=== PATIENT | female | born 1950 | race Caucasian/White ===

== ENCOUNTER → 2023-09-11 16:04 | Outpatient (CLI) | payer MEDICARE, SELFPAY ==
[2023-09-11 17:37] LABS: Add Manual Diff / Slide Review NO; Basophils Absolute Auto 0 /uL (0-100); Basophils Percent Auto 0.9 % (0-2); Eosinophils Absolute Auto 100 /uL (0-450); Eosinophils Percent Auto 1.7 % (2-4); Hematocrit 36.1 % (36-46); Hemoglobin 12.2 g/dL (12.0-16.0); Lymphocytes Absolute Auto 1200 /uL (1100-4500); Lymphocytes Percent Auto 25.1 % (25-40); Mean Corpuscular HGB Conc 33.9 % (30-36); Mean Corpuscular Hemoglobin 30.1 PG (26-34); Mean Corpuscular Volume 88.6 fL (80-100); Monocytes Absolute Auto 400 /uL (0-900); Monocytes Percent Auto 8.3 % (3-14); Neutrophils Absolute Auto 3200 /uL (1500-7000); Platelet Count 152 X10^3/uL (150-400); Red Blood Cell Count 4.07 X10^6/uL (4.0-5.2); Red Cell Distribution Width 12.7 % (11.6-14.8)
[2023-09-11 17:55] LABS: Alanine Aminotransferase 17 IU/L (<35); Albumin 4.3 g/dL (3.5-5.0); Albumin Globulin Ratio 1.3 (1.0-2.8); Alkaline Phosphatase 64 U/L (38-126); Aspartate Aminotransferase 33 IU/L (14-36); Bilirubin Total 0.5 mg/dL (0.2-1.3); Blood Urea Nitrogen 15 mg/dL (7-17); Calcium 9.7 mg/dL (8.4-10.2); Carbon Dioxide 30 mmol/L (22-32); Chloride 103 mmol/L (98-107); Estimated Glomerular Filt Rate > 60 mL/min (>60); Globulin 3.2 g/dL (1.7-4.1); Glucose 101 mg/dL (80-110); HEMOLYSIS < 15 (0-50); Potassium 4.2 mmol/L (3.4-5.1); Sodium 137 mmol/L (137-145); Total Protein 7.5 g/dL (6.3-8.2)
[2023-09-11 18:24] LABS: TSH w/ Reflex to FT4 1.49 uIU/mL (0.47-4.68)
== END ==
LOC: LAB 16:07
PROVIDERS: PCP Family Medicine; Referring Provider Family Medicine; Visit Provider Family Medicine
DX: R53.1 Weakness (principal); R53.83 Other fatigue; G31.83 Neurocognitive disorder with Lewy bodies; F02.80 Dementia in other diseases classified elsewhere, unspecified severity, without behavioral disturbance, psychotic disturbance, mood disturbance, and anxiety; Z86.19 Personal history of other infectious and parasitic diseases; R10.13 Epigastric pain
CPT/HCPCS: 36415; 80053; 84443; 85025

== ENCOUNTER → 2023-09-17 13:49 | Outpatient (CLI) | payer MEDICARE, SELFPAY ==
[2023-09-23 15:13] LABS: H. Pylori Antigen Stool Negative (Negative)
== END ==
PROVIDERS: PCP Family Medicine; Referring Provider Family Medicine; Visit Provider Family Medicine
DX: R10.13 Epigastric pain (principal); R53.1 Weakness; R53.83 Other fatigue; G31.83 Neurocognitive disorder with Lewy bodies; F02.80 Dementia in other diseases classified elsewhere, unspecified severity, without behavioral disturbance, psychotic disturbance, mood disturbance, and anxiety; Z86.19 Personal history of other infectious and parasitic diseases
CPT/HCPCS: 87338

== ENCOUNTER → 2024-01-08 09:23 | Outpatient (CLI) | payer MEDICARE, SELFPAY ==
[2024-01-08 09:44] LABS: Add Manual Diff / Slide Review NO; Basophils Absolute Auto 0 /uL (0-100); Basophils Percent Auto 0.5 % (0-2); Eosinophils Absolute Auto 100 /uL (0-450); Eosinophils Percent Auto 1.4 % (2-4); Hematocrit 36.3 % (36-46); Hemoglobin 12.2 g/dL (12.0-16.0); Lymphocytes Absolute Auto 800 /uL (1100-4500); Mean Corpuscular HGB Conc 33.6 % (30-36); Mean Corpuscular Hemoglobin 30.3 PG (26-34); Mean Corpuscular Volume 90.2 fL (80-100); Monocytes Absolute Auto 500 /uL (0-900); Monocytes Percent Auto 7.8 % (3-14); Neutrophils Absolute Auto 4800 /uL (1500-7000); Neutrophils Percent Auto 77.3 % (50-75); Platelet Count 146 X10^3/uL (150-400); Red Blood Cell Count 4.02 X10^6/uL (4.0-5.2); Red Cell Distribution Width 13.1 % (11.6-14.8); White Blood Cell Count 6.2 X10^3/uL (4.5-11.0)
[2024-01-08 10:13] LABS: Alanine Aminotransferase 16 IU/L (<35); Albumin 4.4 g/dL (3.5-5.0); Albumin Globulin Ratio 1.4 (1.0-2.8); Alkaline Phosphatase 81 U/L (38-126); Aspartate Aminotransferase 29 IU/L (14-36); BUN Creatinine Ratio 26.3 (6-22); Bilirubin Total 0.5 mg/dL (0.2-1.3); Blood Urea Nitrogen 20 mg/dL (7-17); Calcium 9.4 mg/dL (8.4-10.2); Carbon Dioxide 29 mmol/L (22-32); Chloride 104 mmol/L (98-107); Estimated Glomerular Filt Rate > 60 mL/min (>60); Globulin 3.1 g/dL (1.7-4.1); Glucose 101 mg/dL (80-110); HEMOLYSIS < 15 (0-50); Potassium 4.8 mmol/L (3.4-5.1); Sodium 138 mmol/L (137-145); Total Protein 7.5 g/dL (6.3-8.2)
[2024-01-08 10:39] LABS: TSH w/ Reflex to FT4 1.09 uIU/mL (0.47-4.68)
[2024-01-08 11:45] LABS: Appearance Urine UA CLEAR; Bilirubin Urine UA NEGATIVE (NEGATIVE); Color Urine UA YELLOW; Glucose Urine UA NEGATIVE (Negative); Ketones Urine UA NEGATIVE (NEGATIVE); Leukocyte Esterase Urine UA TRACE (NEGATIVE); Nitrite Urine UA NEGATIVE (Negative); Occult Blood Urine UA TRACE-INTACT (Negative); Protein Urine UA NEGATIVE (Negative); Urobilinogen Urine UA 0.2 E.U./dL (0.2)
[2024-01-08 12:33] LABS: Bacteria Urine Occasional (0-1); Calcium Oxalate Crystals Urine Moderate; Culture Indicated Urine Specimen Cultured; RBC Urine None Seen (0-5/HPF); Squamous Epithelial Cell Urine 0-1 /HPF (0-5/HPF); Urine Volume 10mL (spun); WBC Urine 0-1/HPF (0-5/HPF)
== END ==
LOC: LAB 09:24
PROVIDERS: Family Provider Family Medicine; PCP Family Medicine; Referring Provider Family Medicine; Visit Provider Family Medicine
DX: R44.3 Hallucinations, unspecified (principal); R09.89 Other specified symptoms and signs involving the circulatory and respiratory systems; G31.83 Neurocognitive disorder with Lewy bodies; F02.80 Dementia in other diseases classified elsewhere, unspecified severity, without behavioral disturbance, psychotic disturbance, mood disturbance, and anxiety
CPT/HCPCS: 36415; 80053; 81001; 84443; 85025; 87086

== ENCOUNTER 2024-01-27 11:15 | Outpatient (RCR) | payer MEDICARE, BC, SELFPAY ==
--- NOTE | 2024-01-06 11:44 | OT.OPPOC ---
Physical, Occupational & Speech Therapy At [facility] Nata Thomas [id number] 1950 Visit Care Team Role Provider Type Domonique Rubalcava MD Attending Provider Physician Family Provider Primary Care Provider Referring Provider Address: [facility] [place], [address] Fax: Occupational Therapy Plan of Care OT Outpatient Adult Evaluation Start: 01/06/24 10:19 Freq: Status: Active Protocol: Document 01/06/24 11:44 HENRY (Rec: 01/06/24 11:50 HENRY [id number]) General Information - Adult Visit Information Visit Number 07/09-6 Plan of Care Dates 01/06/24-02/17/24 Insurance Information Medicare Session Time Visit Start Date 01/06/24 Visit Start Time 11:50 Visit Stop Time 12:40 Setting Treatment Setting Outpatient Care Visit Type Note Type Initial Evaluation Referral Referring Physician Domonique Rubalcava Reason for Referral Lewy body dementia, weakness, fatigue Identification Identification Confirmed Yes Identification Confirmed By pt and cg Patient Guardian Goals Make sure our home is elias for her, extend her I Previous Therapy Previous Therapy/Therapies Yes History of Therapy Pt is currently receiving PT at another facility Patient Questionnaires Quick Dash- Upper Extremity Quick Dash UE Score 61.4 Quick Dash UE Impairment 60 to 79% Impaired (Score 60- 79) OT Pain Assessment Pain When Pain Assessed After Treatment Pain Present Pain Present Denied Pain Neurological Assessment - Adult Coordination Finger to Nose Test Minimal Impairment Finger Opposition Test Minimal Impairment Pronation/Supination Test Moderate Impairment Goals Fdc Goals Fdc Goals 1. Pt will demonstrate/mirror cross-crawl and proprioception home exercise program, with visual/verbal/tactile cues prn , to engage communication between B hemispheres of the brain, at least 5 attempt for 4 out of 6 exercises. 2. Pt and Cg will engage in UB and LB dressing, cg will utilize simple common language , frmm-buxws-qrhf technique, and visual/verbal/tactile cues as necessary, while pt completes the task with max available I level. 3. Pt will complete a productive activity, with Cg providing visual/verbal/ tactile cues prn, without increase in anxiety or agitation. 4. Cg will demonstrate I with bfck-awnsu-bnbd technique for guiding pt to/from the therapy department. Assessment/Plan Assessment Patient Response Good Rehabilitation Potential Good Impairments Identified ADLs,Balance,Cognition, Coordination/Dexterity, Functional Activities,Memory, Posture,Meaningful Activities, Safety,Eye-Hand Coordination Treatment Assessment Hx of present illness: Nata is a 73 yo F with the diagnosis of Lewy bodies dementia. Pt and DIL are concerned with maintaining pt? s safety and I in home environment for as long as possible. Cg has asked to be taught strategies to assist pt with BADLs/IADLs as well as possible home modifications and DME that may allow pt to remain at home for as long as possible. Per cg, pt has felt particularly poorly the last two weeks and has been having bouts of insomnia. Pts neurologist and PCP are working to address these issues. During eval, pt?s BP was 97/86 with HR 80. Per cg, pt?s typical BP is 90/65. PMHx: HTN, headaches, anxiety Family and Social Hx: She lives with her son, JABARI ( Alejandra), and grandson in a single level home with no steps to manage. Pt has monthly beauty treatments ( hair every other week, massage 1x/mo, and nails every 6weeks ). DIL has been trying to get pt to attend senior center or day program, but pt has increased anxiety with this prospect. Previous and Current functional status: Per pt and cg, pt requires min A to cut tough food, but is otherwise I with eating. Performs grooming and shower with SBA. Performs dressing in standing and requires assist of 70% for UB and 65% for LB dressing . Pt is able to get in and out of bed, but occasionally requires min A to get to middle of the bed. She requires assistance managing clothing during toileting, but is otherwise able to manage hygiene. Pt gets herself tea and makes herself light snacks , but has not been able to assist with larger meal prep. During the day she colors, looks at photo albums, listens to podcasts, reads books and the [employer], walks about a mile on the street with trekking poles and occasionally on wooded trails, listens to music, and face times family. ROM: WFL grossly. Slightly decreased L shoulder IR, still functional. MMT: grossly 4 to 4+/5 for all movements and planes. Pt requires increased time and vc during functional t/fs and with following commands for all assessments. Pt demonstrates some anxious type behavior, especially when suggesting coming back for therapy. Pt required mod A to doff her coat, SBA to doff cardigan, and moderate A to don cardigan. Pt has decreased coordination, with L deficit>R. Both pt and cg would benefit from simplified commands and a common language for BADL/IADL tasks, OT is able to educate on this as well as BADL/IADLs, home modification and DME recommendations. OT has asked DIL to provide pictures of pt ?s home environment for improved recommendations. Skilled OT services are appropriate to address pt deficits and educate pt and cg for increased safety and I. Pt may also benefit from ST. Pt?s cg mentions that pt voice volume has been decreasing. Reviewed with Patient Goals Patient Understanding Good Plan Length of treatment (weeks) 6 Plan of Care Start Date 01/06/24 Plan of Care End Date 02/17/24 Treatment Frequency Once a Week Treatment Duration 45 Minutes Therapeutic Contents Client Education,Functional Activities,Home Exercise Program,Education, Neurodevelopment Treatment, Neuromuscular Re-Education, Self-Care,Therapeutic Activities,Therapeutic Exercises Patient Instruction Plan of Care,Questions/ Concerns Patient Recommendations Continue with Current Program Suggested Referrals Speech Therapy Functional Wrist/Hand Scan Hand Side Sensory Assessment Sensory Profile2 Electronically Signed by: Saima Gil OT 01/13/24 1023 If you are in agreement with this Plan of Care, please return a signed and dated copy. I have reviewed this Plan of Care and certify that the skilled therapy services above are required to meet the patient?s needs. Physician Signature Date Printed Name and Credentials Clinical Instructor Signature Printed Name and Credentials
--- NOTE | 2024-01-06 13:19 | OT.OP.EVAL ---
Visit Care Team Role Provider Type Domonique Rubalcava MD Attending Provider Physician Family Provider Primary Care Provider Referring Provider Specialty: Family Practice LEAD SHAREPOINT DEVELOPER Address: [facility] [place], [address] Fax: Email: [email or web address] Occupational Therapy Initial Evaluation OT Outpatient Adult Evaluation Start: 01/06/24 10:19 Freq: Status: Active Protocol: Document 01/06/24 11:44 HENRY (Rec: 01/06/24 11:50 NOEMIMNSAM [id number]) General Information - Adult Visit Number 1-6 Plan of Care Dates 01/06/24-02/17/24 Insurance Information Medicare Visit Start Date 01/06/24 Visit Start Time 11:50 Visit Stop Time 12:40 Treatment Setting Outpatient Care Note Type Initial Evaluation Referring Physician Domonique Rubalcava Reason for Referral Lewy body dementia, weakness, fatigue Identification Confirmed Yes Identification Confirmed By pt and cg Guardian Goals Make sure our home is elias for her, extend her I Previous Therapy/Therapies Yes History of Therapy Pt is currently receiving PT at another facility Patient Questionnaires Quick Dash UE Score 61.4 Quick Dash UE Impairment 60 to 79% Impaired (Score 60- 79) OT Pain Assessment When Pain Assessed After Treatment Pain Present Denied Pain Neurological Assessment - Adult Finger to Nose Test Minimal Impairment Finger Opposition Test Minimal Impairment Pronation/Supination Test Moderate Impairment Assessment/Plan Patient Response Good Rehabilitation Potential Good Impairments Identified ADLs,Balance,Cognition, Coordination/Dexterity, Functional Activities,Memory, Posture,Meaningful Activities, Safety,Eye-Hand Coordination Treatment Assessment Hx of present illness: Nata is a 73 yo F with the diagnosis of Lewy bodies dementia. Pt and DIL are concerned with maintaining pt? s safety and I in home environment for as long as possible. Cg has asked to be taught strategies to assist pt with BADLs/IADLs as well as possible home modifications and DME that may allow pt to remain at home for as long as possible. Per cg, pt has felt particularly poorly the last two weeks and has been having bouts of insomnia. Pts neurologist and PCP are working to address these issues. During eval, pt?s BP was 97/86 with HR 80. Per cg, pt?s typical BP is 90/65. PMHx: HTN, headaches, anxiety Family and Social Hx: She lives with her son, JABARI ( Alejandra), and grandson in a single level home with no steps to manage. Pt has monthly beauty treatments ( hair every other week, massage 1x/mo, and nails every 6weeks ). JABARI has been trying to get pt to attend senior center or day program, but pt has increased anxiety with this prospect. Previous and Current functional status: Per pt and cg, pt requires min A to cut tough food, but is otherwise I with eating. Performs grooming and shower with SBA. Performs dressing in standing and requires assist of 70% for UB and 65% for LB dressing . Pt is able to get in and out of bed, but occasionally requires min A to get to middle of the bed. She requires assistance managing clothing during toileting, but is otherwise able to manage hygiene. Pt gets herself tea and makes herself light snacks , but has not been able to assist with larger meal prep. During the day she colors, looks at photo albums, listens to podcasts, reads books and the [employer], walks about a mile on the street with trekking poles and occasionally on wooded trails, listens to music, and face times family. ROM: WFL grossly. Slightly decreased L shoulder IR, still functional. MMT: grossly 4 to 4+/5 for all movements and planes. Pt requires increased time and vc during functional t/fs and with following commands for all assessments. Pt demonstrates some anxious type behavior, especially when suggesting coming back for therapy. Pt required mod A to doff her coat, SBA to doff cardigan, and moderate A to don cardigan. Pt has decreased coordination, with L deficit>R. Both pt and cg would benefit from simplified commands and a common language for BADL/IADL tasks, OT is able to educate on this as well as BADL/IADLs, home modification and DME recommendations. OT has asked JABRAI to provide pictures of pt ?s home environment for improved recommendations. Skilled OT services are appropriate to address pt deficits and educate pt and cg for increased safety and I. Pt may also benefit from ST. Pt?s cg mentions that pt voice volume has been decreasing. Reviewed with Patient Goals Patient Understanding Good Length of treatment (weeks) 6 Plan of Care Start Date 01/06/24 Plan of Care End Date 02/17/24 Treatment Frequency Once a Week Treatment Duration 45 Minutes Therapeutic Contents Client Education,Functional Activities,Home Exercise Program,Education, Neurodevelopment Treatment, Neuromuscular Re-Education, Self-Care,Therapeutic Activities,Therapeutic Exercises Patient Instruction Plan of Care,Questions/ Concerns Patient Recommendations Continue with Current Program Suggested Referrals Speech Therapy
--- NOTE | 2024-01-13 12:41 | OT.OP.TRT ---
Visit Care Team Role Provider Type Domonique Rubalcava MD Attending Provider Physician Family Provider Primary Care Provider Referring Provider Specialty: Family Practice BROADBAND ENGINEER Address: [facility] [address], [place], [address] Fax: Email: [email or web address] Occupational Therapy Treatment Note OT Outpatient Treatment Note - Adult Start: 01/06/24 10:19 Freq: Status: Active Protocol: Document 01/13/24 12:15 HENRY (Rec: 01/13/24 10:54 NOEMISCSAM [id number]) OT Outpatient Adult Treatment Note Session Time Visit Start Date 01/13/24 Visit Start Time 11:15 Visit Stop Time 12:15 Visit Information Visit Number 2/-6 Plan of Care Dates 01/06/24-02/17/24 Insurance Information Medicare Setting Treatment Setting Outpatient Care Visit Type Note Type Treatment Note - Subjective Identification Type Name Observations Lawson mentioned that she is lethargic today because she hasn't had a nap. She chose to work on ADLs with OT and Carepartner instead of exercises today. Carepartner, Alejandra, mentioned not knowing how much to help her MIL. - Objective Third Rigger Goals 1. Pt will demonstrate/mirror cross-crawl and proprioception home exercise program, with visual/verbal/tactile cues prn , to engage communication between B hemispheres of the brain, at least 5 attempt for 4 out of 6 exercises. 2. Pt and Cg will engage in UB and LB dressing, cg will utilize simple common language , szjx-wuztu-lodl technique, and visual/verbal/tactile cues as necessary, while pt completes the task with max available I level. 3. Pt will complete a productive activity, with Cg providing visual/verbal/ tactile cues prn, without increase in anxiety or agitation. 4. Cg will demonstrate I with wlaf-zyira-mqoy technique for guiding pt to/from the therapy department. - Treatment 3 Descriptor Education: OT provided handouts to point of care specialist for Show, Tell, HUH technique for engaging pt in functional tasks, dressing safety recommendations, and general DME recommendations. OT to continue to review these with point of care specialist. 2 Descriptor Lpxm-wshxy-yrnf technique. OT educated Alejandra on HUH technique for helping to engage pt in activites. Alejandra required min tc/vc to correct positioning. 1 Descriptor Dressing: Pt performed UB and LB dressing while sitting edge of mat. Pt removed her shoes after OT untied them. She required OTs assistance to unbotton and unzip pants, with HUH technique she initiated doffing pants until they were low enough for her to sit. She returned to sitting with vcs and SBA. She lowered pants with vcs to her ankles. Pt required OT to remove pants from her feet. OT presented pt with her pants, she was able to start them on her R LE and required min A to start with the L LE. Once started, she pulled pants up to her thighs before performing sit>stand with SBA. She pulled pants up over her hips with vcs and required OT to button and zip. Pt returned to sitting with SBA. She doffed cardigan with vcs only and rod puller shirt with vcs only. She was able to initiate shirt over her head with HUH technique. She required vc/tc to start R UE through the sleeve and min A to thread L UE through the sleeve. She was unable to pull shirt down with vc/tc/HUH. - Assessment Patient Response to Treatment Good Rehabilitation Potential Good Impairments Identified ADLs,Balance,Cognition, Functional Activities,Memory, Posture,Meaningful Activities, Safety Progress Towards Goals Good Progress Assessment of Overall Progress Improving Assessment of Improvement Pt requires simple commands provided visually and verbally . She benefits from HUH technique to engage in functional tasks. She was agreeable to practicing dressing with point of care specialist. She required min-mod A with UB and LB dressing using tc/vc prn. OT educated point of care specialist throughout session. OT will continue to review strategies and handouts with point of care specialist and pt. Cont per established POC. Reviewed with Patient/Caregiver Goals,Progress Being Made Patient/Caregiver Understanding Good - Plan Therapy Recommendations Continue with Current Program Amount of Therapy Recommended 1-2 Months Frequency of Treatment Once a Week Length of Session 45 Minutes Therapeutic Contents Client Education,Functional Activities,Home Exercise Program,Joint Protection, Education,Neuromuscular Re- Education,Self-Care, Therapeutic Activities, Therapeutic Exercises
--- NOTE | 2024-01-27 12:46 | OT.OP.TRT ---
Visit Care Team Role Provider Type Domonique Rubalcava MD Attending Provider Physician Family Provider Primary Care Provider Referring Provider Specialty: Family Practice INSTALLATION AND REPAIR TECHNICIAN Address: [facility], [place], [address] Fax: Email: [email or web address] Occupational Therapy Treatment Note OT Outpatient Treatment Note - Adult Start: 01/06/24 10:19 Freq: Status: Active Protocol: Document 01/27/24 09:26 ZANEMOISES (Rec: 01/27/24 12:45 NOEMICASAM [id number]) OT Outpatient Adult Treatment Note Session Time Visit Start Date 01/27/24 Visit Start Time 11:20 Visit Stop Time 12:10 Visit Information Visit Number 3/4-6 Plan of Care Dates 01/06/24-02/17/24 Insurance Information Medicare Setting Treatment Setting Outpatient Care Visit Type Note Type Treatment Note - Subjective Identification Type Name Identification Reconciled With Medical Record Observations Lawson c/o ?I?m lightheaded and some dizziness?. Pt?s ifeoma says that she's been told that this is common with her dementia and that it is being medically managed. Lawson will be trying [employer] [facility], 2 hours soon. Ifeoma is hoping this will help with socialization and respite. - Objective Shelter Goals 1. Pt will demonstrate/mirror cross-crawl and proprioception home exercise program, with visual/verbal/tactile cues prn , to engage communication between B hemispheres of the brain, at least 5 attempt for 4 out of 6 exercises. 2. Pt and Cg will engage in UB and LB dressing, cg will utilize simple common language , jstc-twmap-upcu technique, and visual/verbal/tactile cues as necessary, while pt completes the task with max available I level. MET 01/26 3. Pt will complete a productive activity, with Cg providing visual/verbal/ tactile cues prn, without increase in anxiety or agitation. 4. Cg will demonstrate I with fqin-lgztf-upwj technique for guiding pt to/from the therapy department. - Treatment 3 Descriptor Education: OT reviewed handouts issued at last appointment and answered all questions. Educated corporate receptionist on simpifying commands , providing demonstration or visual cues more often. Agreed to review HUH technique more at next visit. 1 Descriptor Dressing: Pt performed UB and LB dressing while sitting edge of mat with childcare worker assisting. She doffed her coat with vcs to initiate, tight fitting pullboat engineer shirt with mod A, tank top with vcs, and bra with min A for fastener. Pt donned bra with min vcs to thread arms in straps and assist to fasten, tank top with vc to initiate, and overhead shirt with mod A. She was unable to pull shirt down with vc/tc/HUH. Pt removed her shoes with vcs only. She performed sit>stand slowly and became stuck in standing holding her breath. corporate receptionist gave vcs for PLB while OT demonstrated PLB. Pt returned to sitting with min A , continued PLB with demonstration. She agreed to stand again for dressing. Pt performed sit>stand with SBA and initiated pulling down her pants with vcs to start, returns to sitting with SBA, and doffs B LE from pants with vcs only. Pt dons R LE and requires min A for L LE, pulling up pants up her thighs with vcs only. Pt performs sit>stand with SBA and pulls up pants over her hips with vcs only. Pt returns to sitting with SBA and dons B shoes with vc only. Pt dons her coat with min A for starting second arm in sleeve only. - Assessment Patient Response to Treatment Good Rehabilitation Potential Good Impairments Identified ADLs,Balance,Cognition, Functional Activities,Memory, Posture,Meaningful Activities, Safety Progress Towards Goals Good Progress Assessment of Overall Progress Improving Assessment of Improvement Pt requires simple commands provided visually and verbally . OT continues to provide feedback to childcare worker to simplify her commands/ interactions with pt. OT provided specific examples of changes with vc/tc/ demonstration during dressing task today. Overall, pt and childcare worker have met goal #2. They both express being comfortable with dressing task at this stage in pt?s dementia journey. OT to review HUH technique with childcare worker at next tx. Cont per established POC. Reviewed with Patient/Caregiver Goals,Progress Being Made Patient/Caregiver Understanding Good -
--- NOTE | 2024-04-25 08:43 | OT.OP.DC ---
Visit Care Team Role Provider Type Domonique Rubalcava MD Attending Provider Physician Family Provider Primary Care Provider Referring Provider Address: [facility], [place], [address] Fax: Email: [email or web address] OT Outpatient OT Outpatient Adult Evaluation Start: 01/06/24 10:19 Freq: Status: Active Protocol: Document 01/06/24 11:44 HENRY (Rec: 01/06/24 11:50 HENRY [id number]) General Information - Adult Visit Information Plan of Care Dates 01/06/24-02/17/24 Insurance Information Medicare Session Time Visit Start Date 01/06/24 Visit Start Time 11:50 Visit Stop Time 12:40 Setting Treatment Setting Outpatient Care Visit Type Note Type Discharge Goals Group Home Goals Coffee Shop Attendant Goals 1. Pt will demonstrate/mirror cross-crawl and proprioception home exercise program, with visual/verbal/tactile cues prn , to engage communication between B hemispheres of the brain, at least 5 attempt for 4 out of 6 exercises. 2. Pt and Cg will engage in UB and LB dressing, cg will utilize simple common language , twms-vsxzy-ifqd technique, and visual/verbal/tactile cues as necessary, while pt completes the task with max available I level. 3. Pt will complete a productive activity, with Cg providing visual/verbal/ tactile cues prn, without increase in anxiety or agitation. 4. Cg will demonstrate I with vfmp-qzejx-ngaw technique for guiding pt to/from the therapy department. Setting Treatment Setting Outpatient Care Visit Type Note Type Discharge Note - Assessment Patient Response to Treatment Good Rehabilitation Potential Good Impairments Identified ADLs,Balance,Cognition, Functional Activities,Memory, Posture,Meaningful Activities, Safety Progress Towards Goals Good Progress Assessment of Overall Progress Improving Assessment of Improvement Pt was last treated on 01/26/14. Pt and Cg were educated on hand under hand techniques, common language, and dressing techniques to assist in safety and I with the progression of pt's dementia. Family was asked to schedule more visits and a message has been left. Family has not returned call. We are now outside of the care window. D/C pt from skilled OT services. Please reorder if pt would benefit. Reviewed with Patient/Caregiver Goals,Progress Being Made Patient/Caregiver Understanding Good -
== END 2024-05-04 15:11 | disposition home or self-care (01) ==
LOC: OT 11:15
PROVIDERS: Family Provider Family Medicine; PCP Family Medicine; Referring Provider Family Medicine; Visit Provider Family Medicine
DX: G31.83 Neurocognitive disorder with Lewy bodies (principal); F02.B18 Dementia in other diseases classified elsewhere, moderate, with other behavioral disturbance
CPT/HCPCS: 97166; 97530; 97535

== ENCOUNTER 2024-06-14 12:45 | Emergency (ER) | payer MEDICARE, BC, SELFPAY ==
[2024-06-14] VITALS (14 sets, daily range): BP systolic 122–145; BP diastolic 64–89; PULSE 68–81; RESP 15; TEMP 36.4; O2SAT 94–100; BMI 19.3
--- NOTE | 2024-06-14 12:55 | ED_ITS ---
HPI - Abdominal Pain General Chief Complaint: Abdominal Pain Stated Complaint: UTI took augmentin. Abd distention and pain Time Seen by Provider: 06/14/24 12:50 History of Present Illness HPI narrative: 73-year-old female with history of Lewy body dementia presents for lower abdominal distention and pain. Patient recently treated x2 for urinary tract infection, she finished her Augmentin yesterday. Over the weekend the patient had worsening abdominal distention and today was reporting pain. Patient's daughter, who is her primary medical bleach machine operator was out of town this weekend, and when she came back and noticed the abdominal distention she brought her mother in for evaluation. Patient does have noticeable abdominal distention on exam Related Data Home Medications Medication Instructions Recorded Confirmed rivastigmine 13.3 mg/24 hour 1 patch topical DAILY 09/11/23 02/07/24 transdermal patch sertraline 100 mg tablet mg PO 09/11/23 02/07/24 Previous Rx's Medication Instructions Recorded mirtazapine 15 mg tablet 15 mg PO ONCE PM #60 tabs 09/11/23 famotidine 20 mg tablet 20 mg PO DAILY #90 tabs 11/03/23 Allergies Allergy/AdvReac Type Severity Reaction Status Date / Time ampicillin Allergy Severe neurological Verified 06/14/24 12:56 inflammation metronidazole Allergy Verified 06/14/24 12:56 codiene AdvReac Severe Hives Uncoded 02/07/24 10:31 Patient History Medical History Hallucinations Labile blood pressure Cataracts, bilateral (~2017) Human papilloma virus (~2000) Herpes (~2000) Abnormal Pap smear of cervix (~2000) Skin cancer (~2022) Melanoma (~2003) Breast cancer (~2018) Insomnia IBS (irritable bowel syndrome) (~2007) Anxiety Lewy body dementia Fatigue Weakness Surgical History Anesthesia History of tubal ligation (~1984) Status post LASIK surgery (~1999) History of section History of hemorrhoidectomy (~2013) History of lumpectomy of left breast (~2018) History of squamous cell carcinoma excision (~09/04/23) Family History Father History of heart disease Mother Cancer Brother History of heart disease Grandfather Stroke Grandmother No problems noted. Grandmother Cancer Social History Smoking Status: Never smoker Smoking Status: Never smoker Exam Initial Vital Signs Initial Vital Signs: Vital Signs Temperature 97.5 F L 06/14/24 12:47 Pulse Rate 80 06/14/24 12:47 Respiratory Rate 15 06/14/24 12:47 Blood Pressure 141/89 H 06/14/24 12:47 Pulse Oximetry 95 06/14/24 12:47 Oxygen Delivery Method Room Air 06/14/24 12:47 Const: Awake, alert, frail, nontoxic appearing Cardiac: regular rate, regular rhythm RESP: unlabored, clear bilaterally, no wheezing GI: Soft, significant distention lower abdomen, no peritoneal signs Skin: Warm, Dry, intact, no rashes Neuro: AO x2, CN II-XII grossly intact, at baseline per daughter Course Orders Ordered: ED Orders 06/14/24 13:10 CBC Auto Diff [Complete Blood Count AUTO DIFF] Stat CMP [Comprehensive Metabolic Panel] Stat Lactate (Lactic Acid) Stat 06/14/24 13:50 CT abdomen pelvis w con Stat 06/14/24 14:00 UA Complete [Urinalysis and Microscopic] Stat Discontinued Medications Morphine Sulfate (Morphine 4 Mg/Ml Inj) 4 mg IV NOW ONE Stop: 06/14/24 12:55 Last Admin: 06/14/24 13:13 Dose: 4 mg Documented By: ANIBAL Vital Signs Vital signs: Vital Signs - 8 hr 06/14/24 12:47 06/14/24 12:52 06/14/24 12:54 Temperature 97.5 F L Pulse Rate 80 81 81 Respiratory Rate 15 Blood Pressure 141/89 H Pulse Oximetry 95 97 Oxygen Delivery Method Room Air 06/14/24 12:54 06/14/24 13:07 06/14/24 13:30 Temperature Pulse Rate 74 68 Respiratory Rate Blood Pressure 141/89 H Pulse Oximetry 98 Oxygen Delivery Method 06/14/24 13:42 06/14/24 13:42 06/14/24 14:02 Temperature Pulse Rate 75 77 Respiratory Rate Blood Pressure 143/69 H Pulse Oximetry 97 Oxygen Delivery Method 06/14/24 14:02 06/14/24 14:05 06/14/24 14:05 Temperature Pulse Rate 79 Respiratory Rate Blood Pressure 145/68 H 142/67 H Pulse Oximetry 99 Oxygen Delivery Method 06/14/24 14:12 06/14/24 14:12 06/14/24 14:25 Temperature Pulse Rate 77 Respiratory Rate Blood Pressure 142/71 H 130/67 Pulse Oximetry 100 Oxygen Delivery Method 06/14/24 14:25 06/14/24 14:30 06/14/24 14:30 Temperature Pulse Rate 75 74 Respiratory Rate Blood Pressure 122/64 Pulse Oximetry 99 98 Oxygen Delivery Method 06/14/24 14:54 06/14/24 14:54 06/14/24 14:59 Temperature Pulse Rate 76 Respiratory Rate Blood Pressure 128/67 Pulse Oximetry 99 94 Oxygen Delivery Method 06/14/24 15:04 Temperature Pulse Rate Respiratory Rate Blood Pressure 133/71 Pulse Oximetry Oxygen Delivery Method MDM - Abdominal Pain Lab Data 06/14/24 13:10 06/14/24 13:10 Labs: Lab Results 06/14/24 06/14/24 Range/Units 13:10 14:00 WBC 4.6 (4.5-11.0) X10^3/uL RBC 3.99 L (4.0-5.2) X10^6/uL Hgb 12.0 (12.0-16.0) g/dL Hct 35.7 L (36-46) % MCV 89.3 (80-100) fL MCH 30.1 (26-34) PG MCHC 33.7 (30-36) % RDW 13.0 (11.6-14.8) % Plt Count 160 (150-400) X10^3/uL Neut % (Auto) 76.5 H (50-75) % Lymph % (Auto) 12.6 L (25-40) % [place] % (Auto) 8.6 (3-14) % Eos % (Auto) 1.8 L (2-4) % Baso % (Auto) 0.5 (0-2) % Neut # (Auto) 3500 (6831-9486) /uL Lymph # (Auto) 600 L (7938-0555) /uL [place]ley # (Auto) 400 (0-900) /uL Eos # (Auto) 100 (0-450) /uL Baso # (Auto) 0 (0-100) /uL Sodium 134 L (137-145) mmol/L Potassium 4.2 (3.4-5.1) mmol/L Chloride 103 (98-107) mmol/L Carbon Dioxide 27 (22-32) mmol/L BUN 22 H (7-17) mg/dL Creatinine 0.90 (0.52-1.04) mg/dL Estimated GFR > 60 (>60) mL/min BUN/Creatinine Ratio 24.4 H (6-22) Glucose 115 H (80-110) mg/dL Lactate 0.7 (0.7-2.1) mmol/L Calcium 9.3 (8.4-10.2) mg/dL Total Bilirubin 0.6 (0.2-1.3) mg/dL AST 41 H (14-36) IU/L ALT 22 (<35) IU/L Alkaline Phosphatase 58 (38-126) U/L Total Protein 7.4 (6.3-8.2) g/dL Albumin 4.2 (3.5-5.0) g/dL Globulin 3.2 (1.7-4.1) g/dL Albumin/Globulin Ratio 1.3 (1.0-2.8) Urine Color Yellow Urine Appearance Clear Urine pH 6.0 (4.5-8.0) Ur Specific [place] 1.010 (1.000-1.035) Urine Protein Negative (Negative) Urine Glucose (UA) Negative (Negative) g/dL Urine Ketones Negative (NEGATIVE) Urine Occult Blood Negative (Negative) Urine Nitrate Negative (Negative) Urine Bilirubin Negative (NEGATIVE) Urine Urobilinogen 0.2 (0.2) E.U./dL Ur Leukocyte Esterase Negative (NEGATIVE) Urine RBC None seen (0-5/HPF) Urine WBC None seen (0-5/HPF) Ur Squamous Epith Cells None seen (0-5/HPF) Urine Bacteria None seen (None) Ur Culture Indicated? Cult not indicated Vol Urine Centrifuged 10ml (spun) Imaging Data CT scan - abdomen/pelvis: Radiologist's Impression: PROCEDURE: CT ABDOMEN PELVIS W CON INDICATIONS: ABD DISTENSION/PAIN X 1 WK TECHNIQUE: After the administration of intravenous contrast, axial sections acquired from the lung bases to the pubic symphysis. Coronal and sagittal reformats were performed. For radiation dose reduction, the following was used: automated exposure control, adjustment of mA and/or kV according to patient size. COMPARISON: None. FINDINGS: Image quality: Diagnostic. Lower Chest: No significant findings. ABDOMEN: Liver: No solid mass. Gallbladder: No radiopaque gallstones or wall thickening. Biliary ducts: No biliary dilation. Pancreas: No ductal dilation. Spleen: Size is within normal limits. Adrenal Glands: No adrenal nodules. Kidneys and Ureters: There is severe right and moderate to severe left hydronephrosis. The right ureter is severely dilated throughout its course. The superior aspect of the left ureter is mildly dilated. No ureterolithiasis. Stomach and Bowel: The stomach is decompressed. The small bowel demonstrates normal caliber and wall thickness. A moderate to large amount of stool is present within the right hemicolon. A large amount of stool is present in the rectosigmoid. Peritoneum: No abnormal intraperitoneal fluid. No free air. Ventral Wall: No significant ventral hernia. Abdominal Nodes: No retroperitoneal or mesenteric adenopathy by size criteria. Vessels: Aorta and inferior vena cava are normal in size. PELVIS: Pelvic Organs: Unremarkable. Bladder: There is massive distention of the bladder which fills the entire pelvis and the lower half of the abdomen. No bladder wall thickening or mural nodularity. No bladder calculi. Pelvic Nodes: No enlarged lymph nodes. Miscellaneous: No inguinal hernias are seen. Bones: No aggressive osseous abnormality. IMPRESSION: 1. Massive bladder distention with probable resultant hydroureter and bilateral hydronephrosis. 2. Findings suspicious for early fecal impaction at the rectosigmoid. Dictated by: Jazmyne Leyva M.D. on 06/14/2024 at 14:06 Approved by: Jazmyne Leyva M.D. on 06/14/2024 at 14:10 [facility] Narrative Medical decision making narrative: Abdominal distention over the weekend. Patient does have marked distention of her lower abdomen, no other peritoneal signs. Previous history of hysterectomy for anemia, no other intra-abdominal surgical history. Last bowel movement earlier this morning, reported normal per daughter. Laboratory work, CT imaging ordered. Laboratory work reviewed, no significant abnormality identified. CT of the abdomen and pelvis shows marked bladder distention and constipation. Review of medications shows that patient was on rivastigmine, which can cause urinary retention. Lara catheter placed with drainage of large amounts of urine. Urine negative for signs of infection. CT also notes some hydroureter on the right-hand side, however creatinine normal. Now that urine is no longer being retained this should hopefully go back to normal. Daughter counseled of CT results, recommended discussion with primary doctor about pros and cons of possibly discontinuing rivastigmine. Catheter should remain in place until PCP follow up. Nursing staff provided Lara catheter care instructions at bedside. For constipation daughter was given GI clean out protocol to follow at home. ED return precautions discussed at bedside. Daughter expressed understanding of the plan and is in agreement at this time. All questions answered at the time of discharge. Discharge Plan Departure Patient Disposition: Home Clinical Impression: Urinary retention, Constipation Instructions: How to Care for Your Lara Catheter -- Female Activity Restrictions/Additional Instructions: Your CT today showed that you were retaining a large amount of urine, which seems to be the cause of your abdominal distention. The Lara catheter will help to drain your urine so that you do not become swollen again. Follow up with your primary care doctor to see if the catheter can be removed. It was possible that the rivastigmine that you are on caused the retention. Talk with either your primary doctor or your neurologist about possible alternatives to this medication. The CT also showed some constipation, follow the clean out protocol provided to help prevent constipation. Prescriptions: No Action rivastigmine 13.3 mg/24 hour patch 24 hour 1 patch topical DAILY sertraline 100 mg tablet PO mirtazapine 15 mg tablet 15 mg PO ONCE PM Qty: 60 3RF famotidine 20 mg tablet 20 mg PO DAILY Qty: 90 3RF Referrals: Domonique Rubalcava MD [Primary Care Provider] - Stand Alone Forms: Patient Portal/API/Survey
[2024-06-14] MEDS: MORPHINE 4 MG/ML INJ IV (13:13)
[2024-06-14 13:25] LABS: Add Manual Diff / Slide Review NO; Basophils Absolute Auto 0 /uL (0-100); Basophils Percent Auto 0.5 % (0-2); Eosinophils Absolute Auto 100 /uL (0-450); Eosinophils Percent Auto 1.8 % (2-4); Hematocrit 35.7 % (36-46); Lymphocytes Absolute Auto 600 /uL (1100-4500); Lymphocytes Percent Auto 12.6 % (25-40); Mean Corpuscular HGB Conc 33.7 % (30-36); Mean Corpuscular Hemoglobin 30.1 PG (26-34); Mean Corpuscular Volume 89.3 fL (80-100); Monocytes Absolute Auto 400 /uL (0-900); Monocytes Percent Auto 8.6 % (3-14); Neutrophils Absolute Auto 3500 /uL (1500-7000); Neutrophils Percent Auto 76.5 % (50-75); Platelet Count 160 X10^3/uL (150-400); Red Blood Cell Count 3.99 X10^6/uL (4.0-5.2); White Blood Cell Count 4.6 X10^3/uL (4.5-11.0)
[2024-06-14 13:28] LABS: Alanine Aminotransferase 22 IU/L (<35); Albumin 4.2 g/dL (3.5-5.0); Albumin Globulin Ratio 1.3 (1.0-2.8); Alkaline Phosphatase 58 U/L (38-126); Aspartate Aminotransferase 41 IU/L (14-36); BUN Creatinine Ratio 24.4 (6-22); Bilirubin Total 0.6 mg/dL (0.2-1.3); Blood Urea Nitrogen 22 mg/dL (7-17); Calcium 9.3 mg/dL (8.4-10.2); Carbon Dioxide 27 mmol/L (22-32); Chloride 103 mmol/L (98-107); Estimated Glomerular Filt Rate > 60 mL/min (>60); Globulin 3.2 g/dL (1.7-4.1); Glucose 115 mg/dL (80-110); HEMOLYSIS < 15 (0-50); Potassium 4.2 mmol/L (3.4-5.1); Sodium 134 mmol/L (137-145); Total Protein 7.4 g/dL (6.3-8.2)
[2024-06-14 13:29] LABS: Lactate (Lactic Acid) 0.7 mmol/L (0.7-2.1)
--- NOTE | 2024-06-14 13:50 | DI.CT.S_ITS ---
PROCEDURE: CT ABDOMEN PELVIS W CON INDICATIONS: ABD DISTENSION/PAIN X 1 WK TECHNIQUE: After the administration of intravenous contrast, axial sections acquired from the lung bases to the pubic symphysis. Coronal and sagittal reformats were performed. For radiation dose reduction, the following was used: automated exposure control, adjustment of mA and/or kV according to patient size. COMPARISON: None. FINDINGS: Image quality: Diagnostic. Lower Chest: No significant findings. ABDOMEN: Liver: No solid mass. Gallbladder: No radiopaque gallstones or wall thickening. Biliary ducts: No biliary dilation. Pancreas: No ductal dilation. Spleen: Size is within normal limits. Adrenal Glands: No adrenal nodules. Kidneys and Ureters: There is severe right and moderate to severe left hydronephrosis. The right ureter is severely dilated throughout its course. The superior aspect of the left ureter is mildly dilated. No ureterolithiasis. Stomach and Bowel: The stomach is decompressed. The small bowel demonstrates normal caliber and wall thickness. A moderate to large amount of stool is present within the right hemicolon. A large amount of stool is present in the rectosigmoid. Peritoneum: No abnormal intraperitoneal fluid. No free air. Ventral Wall: No significant ventral hernia. Abdominal Nodes: No retroperitoneal or mesenteric adenopathy by size criteria. Vessels: Aorta and inferior vena cava are normal in size. PELVIS: Pelvic Organs: Unremarkable. Bladder: There is massive distention of the bladder which fills the entire pelvis and the lower half of the abdomen. No bladder wall thickening or mural nodularity. No bladder calculi. Pelvic Nodes: No enlarged lymph nodes. Miscellaneous: No inguinal hernias are seen. Bones: No aggressive osseous abnormality. IMPRESSION: 1. Massive bladder distention with probable resultant hydroureter and bilateral hydronephrosis. 2. Findings suspicious for early fecal impaction at the rectosigmoid. Dictated by: Jazmyne Leyva M.D. on 06/14/2024 at 14:06 Approved by: Jazmyne Leyva M.D. on 06/14/2024 at 14:10
[2024-06-14 14:23] LABS: Appearance Urine UA CLEAR; Bilirubin Urine UA NEGATIVE (NEGATIVE); Color Urine UA YELLOW; Glucose Urine UA NEGATIVE (Negative); Ketones Urine UA NEGATIVE (NEGATIVE); Leukocyte Esterase Urine UA NEGATIVE (NEGATIVE); Nitrite Urine UA NEGATIVE (Negative); Occult Blood Urine UA NEGATIVE (Negative); Protein Urine UA NEGATIVE (Negative); Urobilinogen Urine UA 0.2 E.U./dL (0.2)
[2024-06-14 14:26] LABS: Urine Volume 10mL (spun)
[2024-06-14 14:29] LABS: Bacteria Urine None Seen; Culture Indicated Urine Cult Not Indicated; RBC Urine None Seen (0-5/HPF); Squamous Epithelial Cell Urine None Seen (0-5/HPF); WBC Urine None Seen (0-5/HPF)
== END 2024-06-14 15:22 | disposition home or self-care (01) ==
PROVIDERS: Emergency Provider Emergency Medicine; Family Provider Family Medicine; PCP Family Medicine
DX: R33.8 Other retention of urine (principal); K59.00 Constipation, unspecified; R14.0 Abdominal distension (gaseous)
CPT/HCPCS: 36415; 74177; 80053; 81001; 83605; 85025; 96374; 99284; J2270; Q9967

== ENCOUNTER 2024-06-16 21:23 | Emergency (ER) | payer MEDICARE, BC, SELFPAY ==
[2024-06-16] VITALS (7 sets, daily range): BP systolic 129–143; BP diastolic 64–72; PULSE 72–82; RESP 18; TEMP 36.7; O2SAT 98–99
--- NOTE | 2024-06-16 21:48 | ED.GENADULT ---
HPI - General Adult General Chief complaint: Urogenital-Female Stated complaint: returning, unable to urinate Time Seen by Provider: 06/16/24 21:30 Source: patient and family Mode of arrival: Ambulatory History of Present Illness HPI narrative: 73-year-old female with ongoing abdominal discomfort and urinary issues. History of dementia per daughter in-law at bedside who was primary historian. Patient a proximally 4 weeks ago had diagnosis of urinary tract infection that was treated with cephalexin antibiotic. Subsequently we will before last she had another urine infection treated with a course of oral Augmentin antibiotic. Two days ago presented here with abdominal discomfort, CT abdomen and pelvis imaging showed bladder distention, new Lara catheter was placed for discharge, also some constipation stool burden, had discharge instructions for home regimen of hydration and MiraLax that they have been doing at home. Saw PCP in clinic earlier today, Lara catheter was removed at that time. Now has increasing lower abdominal discomfort. No loose stools, no black or red stools known. No fevers or chills. No vomiting. Related Data Home Medications Medication Instructions Recorded Confirmed rivastigmine 13.3 mg/24 hour 1 patch topical DAILY 09/11/23 06/16/24 transdermal patch sertraline 100 mg tablet mg PO 09/11/23 06/16/24 Previous Rx's Medication Instructions Recorded mirtazapine 15 mg tablet 15 mg PO ONCE PM #60 tabs 09/11/23 famotidine 20 mg tablet 20 mg PO DAILY #90 tabs 11/03/23 cefdinir 300 mg capsule 300 mg PO BID 10 days #20 caps 06/16/24 Allergies Allergy/AdvReac Type Severity Reaction Status Date / Time ampicillin Allergy Severe neurological Verified 06/16/24 12:06 inflammation metronidazole Allergy Verified 06/16/24 12:06 codiene AdvReac Severe Hives Uncoded 06/16/24 12:06 Review of Systems Review of Systems Narrative: See HPI Patient History Medical History Hallucinations Labile blood pressure Cataracts, bilateral (~2017) Human papilloma virus (~2000) Herpes (~2000) Abnormal Pap smear of cervix (~2000) Skin cancer (~2022) Melanoma (~2003) Breast cancer (~2018) Insomnia IBS (irritable bowel syndrome) (~2007) Anxiety Lewy body dementia Fatigue Weakness Surgical History Anesthesia History of tubal ligation (~1984) Status post LASIK surgery (~1999) History of section History of hemorrhoidectomy (~2013) History of lumpectomy of left breast (~2018) History of squamous cell carcinoma excision (~09/04/23) Family History Father History of heart disease Mother Cancer Brother History of heart disease Grandfather Stroke Grandmother No problems noted. Grandmother Cancer Social History Smoking Status: Never smoker Smoking Status: Never smoker Exam Narrative Exam Narrative: GENERAL: Well-developed patient, in mild distress. HEAD: Atraumatic. Normocephalic. EYES: Pupils equal round and reactive. Extraocular motions intact. No scleral icterus. No injection or drainage. ENT: Nose without bleeding, purulent drainage. Throat without erythema, tonsillar hypertrophy or exudate. Airway patent. NECK: Trachea midline. Non tender CARDIOVASCULAR: Regular rate and rhythm without murmurs, gallops, or rubs. RESPIRATORY: Clear to auscultation. Breath sounds equal bilaterally. No wheezes, rales, or rhonchi. GASTROINTESTINAL: Abdomen soft, non-tender, nondistended. EXTREMITIES: No edema or joint tenderness. BACK: Nontender without deformity or crepitance. No flank tenderness. NEURO: Cooperative, motor functions grossly nonfocal SKIN: No rash or erythema of visible areas Initial Vital Signs Initial Vital Signs: Vital Signs Pulse Oximetry 98 06/16/24 21:28 Course Orders Ordered: ED Orders 06/16/24 21:57 Complete Blood Count AUTO DIFF Stat Comprehensive Metabolic Panel Stat Lipase Stat 06/16/24 22:23 Urinalysis and Microscopic Stat Urine Culture Stat Discontinued Medications Cefdinir (Cefdinir 300 Mg Capsule) 300 mg PO NOW ONE Stop: 06/16/24 23:17 Last Admin: 06/16/24 23:34 Dose: 300 mg Documented By: JULIANO Vital Signs Vital signs: Vital Signs - 8 hr 06/16/24 21:28 06/16/24 21:29 06/16/24 21:29 Temperature Pulse Rate 82 Respiratory Rate Blood Pressure 138/64 Pulse Oximetry 98 99 Oxygen Delivery Method 06/16/24 21:30 06/16/24 21:30 06/16/24 21:32 Temperature 98.1 F Pulse Rate 74 81 Respiratory Rate 18 Blood Pressure 143/70 H 138/64 Pulse Oximetry 99 99 Oxygen Delivery Method Room Air 06/16/24 22:00 06/16/24 22:00 06/16/24 22:30 Temperature Pulse Rate 72 78 Respiratory Rate Blood Pressure 129/69 Pulse Oximetry 99 98 Oxygen Delivery Method 06/16/24 22:30 06/16/24 23:00 06/16/24 23:00 Temperature Pulse Rate 81 Respiratory Rate 18 Blood Pressure 135/66 135/72 Pulse Oximetry 99 Oxygen Delivery Method Medical Decision Making Lab Data Lab results reviewed: Yes I reviewed the patient's lab results. Lab results narrative: Urinalysis nitrite positive, many bacteria present, urine culture performed per protocol. Labs: Lab Results 06/16/24 Range/Units 22:23 Urine Color Yellow Urine Appearance Cloudy Urine pH 6.0 (4.5-8.0) Ur Specific [place] 1.020 (1.000-1.035) Urine Protein Trace H (Negative) Urine Glucose (UA) Negative (Negative) g/dL Urine Ketones Negative (NEGATIVE) Urine Occult Blood 2+ H (Negative) Urine Nitrate Positive H (Negative) Urine Bilirubin Negative (NEGATIVE) Urine Urobilinogen 0.2 (0.2) E.U./dL Ur Leukocyte Esterase 3+ H (NEGATIVE) Urine RBC None seen (0-5/HPF) Urine WBC 5-10/hpf H (0-5/HPF) Ur Squamous Epith Cells 0-1 /hpf (0-5/HPF) Urine Bacteria Many (>30) H (None) Ur Culture Indicated? Specimen cultured Vol Urine Centrifuged 10ml (spun) MDM Narrative Medical decision making narrative: 73-year-old female with Lara catheter removal earlier today in clinic, after CT imaging 2 days ago showed bladder distention and stool burden, using home bowel regimen, lower abdominal discomfort since Lara catheter removal. Concern for reaccumulation of urine. Bladder scan shows residual volume 330. New Lara catheter requested. New urinalysis requested. We will hold off on other blood work for now, [id number] and patient agreeable to this plan. Urine from new Lara catheter cloudy, await urinalysis results from laboratory Urinalysis shows bacteriuria and infectious markers, urine culture pending, 1st dose oral cefdinir given, prescription for further cefdinir antibiotic for pharmacy. Leave Lara in place for now. Recheck in clinic Thursday with your regular provider or with local urology, local urologists contact information provided. Continue antibiotics for full course, consider repeat urinalysis at the end of treatment course. Follow up with Urology for possible Lara catheter removal, but also for further evaluation given frequency of urinary tract infection recent, and also recurrent urinary retention problems. Home with [id number]. Return precautions discussed Discharge Plan Departure Patient Disposition: Home Clinical Impression: Acute urinary retention, Urinary tract infection Activity Restrictions/Additional Instructions: Recent urinary tract infections, recent courses of cephalexin and Augmentin antibiotics. No urine culture information available in the hospital system. Recent urinary retention, Lara catheter placed 2 days ago from visit here after CT scanning showed increased bladder volume and stool in the colon. You are using a bowel regimen to address the stool in the colon. Lara catheter was removed in clinic earlier today, increasing lower abdominal discomfort since that time. Bladder scan showed increased volume of the bladder once again, Lara was placed again, pain discomfort symptoms improved. Urinalysis from visit today was quite cloudy, many bacteria present. Oral dose of cefdinir antibiotic given, prescription for further cefdinir antibiotic course sent to your pharmacy. Leave Lara catheter in place for now. Consider follow up Thursday with your regular provider, also Urology contact information provided as well, though you might require referral from your primary care provider. Return earlier to this/nearest emergency department for any change worsening symptoms or any concerns prior Prescriptions: New cefdinir 300 mg capsule 300 mg PO BID 10 Days Qty: 20 0RF No Action rivastigmine 13.3 mg/24 hour patch 24 hour 1 patch topical DAILY sertraline 100 mg tablet PO mirtazapine 15 mg tablet 15 mg PO ONCE PM Qty: 60 3RF famotidine 20 mg tablet 20 mg PO DAILY Qty: 90 3RF Referrals: Raj Oswald DO [Physician] - Domonique Rubalcava MD [Primary Care Provider] - Mickey Lagos MD [Physician] - Stand Alone Forms: Patient Portal/API/Survey
[2024-06-16 23:04] LABS: Appearance Urine UA CLOUDY; Bilirubin Urine UA NEGATIVE (NEGATIVE); Color Urine UA YELLOW; Glucose Urine UA NEGATIVE (Negative); Ketones Urine UA NEGATIVE (NEGATIVE); Leukocyte Esterase Urine UA 3+ (NEGATIVE); Nitrite Urine UA POSITIVE (Negative); Occult Blood Urine UA 2+ (Negative); Protein Urine UA TRACE (Negative); Urobilinogen Urine UA 0.2 E.U./dL (0.2)
[2024-06-16 23:12] LABS: Bacteria Urine Many (>30); Culture Indicated Urine Specimen Cultured; RBC Urine None Seen (0-5/HPF); Squamous Epithelial Cell Urine 0-1 /HPF (0-5/HPF); Urine Volume 10mL (spun); WBC Urine 5-10/HPF (0-5/HPF)
[2024-06-16] MEDS: CEFDINIR 300 MG CAPSULE PO (23:34)
== END 2024-06-16 23:41 | disposition home or self-care (01) ==
PROVIDERS: Emergency Provider Emergency Medicine; Family Provider Family Medicine; PCP Family Medicine
DX: N39.0 Urinary tract infection, site not specified (principal); R33.8 Other retention of urine
CPT/HCPCS: 51702; 51798; 81001; 87077; 87086; 87186; 99283; 99284

== ENCOUNTER → 2024-07-12 10:57 | Outpatient (CLI) | payer MEDICARE, SELFPAY | PROVIDERS: Family Provider Family Medicine; PCP Family Medicine; Visit Provider Physician Assistant | DX: R10.9 Unspecified abdominal pain (principal) | CPT/HCPCS: 87086 ==

== ENCOUNTER → 2024-07-19 15:03 | Outpatient (CLI) | payer MEDICARE, BC, SELFPAY | PROVIDERS: Family Provider Family Medicine; PCP Family Medicine; Visit Provider Urology | DX: R39.9 Unspecified symptoms and signs involving the genitourinary system (principal) | CPT/HCPCS: 87086 ==

== ENCOUNTER → 2024-07-19 16:57 | Outpatient (CLI) | payer MEDICARE, BC, SELFPAY ==
[2024-07-19 17:46] LABS: BUN Creatinine Ratio 26.1 (6-22); Blood Urea Nitrogen 23 mg/dL (7-17); Calcium 9.8 mg/dL (8.4-10.2); Carbon Dioxide 29 mmol/L (22-32); Chloride 102 mmol/L (98-107); Estimated Glomerular Filt Rate > 60 mL/min (>60); Glucose 99 mg/dL (80-110); HEMOLYSIS < 15 (0-50); Potassium 4.5 mmol/L (3.4-5.1); Sodium 137 mmol/L (137-145)
== END ==
PROVIDERS: Family Provider Family Medicine; PCP Family Medicine; Referring Provider Urology; Visit Provider Urology
DX: K59.00 Constipation, unspecified (principal); N13.30 Unspecified hydronephrosis; R33.8 Other retention of urine; R39.9 Unspecified symptoms and signs involving the genitourinary system; G31.83 Neurocognitive disorder with Lewy bodies; F02.B18 Dementia in other diseases classified elsewhere, moderate, with other behavioral disturbance
CPT/HCPCS: 36415; 51798; 80048; 81002; 87086; 99214

== ENCOUNTER 2024-07-28 14:51 | Emergency (ER) | payer MEDICARE, BC, SELFPAY ==
[2024-07-28 15:08] VITALS: BP 101/56; PULSE 75; RESP 14; TEMP 36.8; O2SAT 100; BMI 19.3
--- NOTE | 2024-07-28 15:31 | ED_ITS ---
<Statement entered by Rickey Verdugo, - 08/05/24 06:59> Dr. Verdugo: I was immediately available in the department for consultation. I did not actually see the patient. HPI - Female Genitourinary General Chief complaint: Recheck/Abnormal Lab/Rx Stated complaint: Pulled catheter out Time Seen by Provider: 07/28/24 15:31 Source: patient Mode of arrival: Ambulatory History of Present Illness HPI Narrative: Ms. Nata Thomas is a very pleasant 74-year-old female with a past medical history of urinary retention with Lara catheter in place, dementia who presents to the emergency department with her [id number] whom she lives with due to Lara catheter accidentally being pulled out. Patient was seen in the emergency department on 06/16/2024 for urinary retention. She saw urologist Dr. Lagos last Thursday who exchanged Lara catheter in office and wanted her to return to the office for catheter removal in 30 days. Unfortunately this morning the patient accidentally pulled out her Lara catheter as she removed her pants and started walking while the bag was still attached to the bed. There was a small amount of blood in her brief after this event but patient is denying any pain or issues . She is in the emergency department to have a new Lara catheter placed. Patient denies any pain, daughter in-law denies any other concerns. They did call the urologist office 1st however they do not have a nurse available to place the Lara which is why they were advised to come to the ED. Related Data Home Medications Medication Instructions Recorded Confirmed sertraline 100 mg tablet mg PO 09/11/23 07/19/24 Previous Rx's Medication Instructions Recorded mirtazapine 15 mg tablet 15 mg PO ONCE PM #60 tabs 09/11/23 famotidine 20 mg tablet 20 mg PO DAILY #90 tabs 11/03/23 Allergies Allergy/AdvReac Type Severity Reaction Status Date / Time ampicillin Allergy Severe neurological Verified 07/19/24 15:15 inflammation metronidazole Allergy Verified 07/19/24 15:15 codiene AdvReac Severe Hives Uncoded 07/19/24 15:15 Review of Systems Review of Systems ROS Unobtainable: All systems reviewed & are unremarkable except as noted in HPI and below Patient History Medical History Bilateral hydronephrosis Hallucinations Labile blood pressure Cataracts, bilateral (~2017) Human papilloma virus (~2000) Herpes (~2000) Abnormal Pap smear of cervix (~2000) Skin cancer (~2022) Melanoma (~2003) Breast cancer (~2018) Insomnia IBS (irritable bowel syndrome) (~2007) Anxiety Lewy body dementia Fatigue Weakness Surgical History Anesthesia History of tubal ligation (~1984) Status post LASIK surgery (~1999) History of section History of hemorrhoidectomy (~2013) History of lumpectomy of left breast (~2018) History of squamous cell carcinoma excision (~09/04/23) Family History Father History of heart disease Mother Cancer Brother History of heart disease Grandfather Stroke Grandmother No problems noted. Grandmother Cancer Exam Narrative Exam Narrative: GENERAL: 74 year old patient appears stated age. Well-developed patient, in no acute distress. HEAD: Atraumatic. Normocephalic. CARDIOVASCULAR: Regular rate. RESPIRATORY: ?Nonlabored respirations. ?Speaking in clear, full sentences. GASTROINTESTINAL: Abdomen soft, non-tender, nondistended. NEURO: Alert. Baseline mental status according to family at bedside. ?Clear speech. ?Moves all 4 extremities appropriately. SKIN: No rash or erythema of visible areas Initial Vital Signs Initial Vital Signs: Vital Signs Temperature 98.2 F 07/28/24 15:08 Pulse Rate 75 07/28/24 15:08 Respiratory Rate 14 07/28/24 15:08 Blood Pressure 101/56 L 07/28/24 15:08 Pulse Oximetry 100 07/28/24 15:08 Oxygen Delivery Method Room Air 07/28/24 15:08 Course Vital Signs Vital signs: Vital Signs - 8 hr 07/28/24 15:08 07/28/24 18:14 Temperature 98.2 F 98.1 F Pulse Rate 75 78 Respiratory Rate 14 18 Blood Pressure 101/56 L 118/61 Pulse Oximetry 100 98 Oxygen Delivery Method Room Air Room Air MDM - Female Genitourinary Medical Records Attestation: I reviewed the patient's medical records. MDM Narrative Medical decision making narrative: 74-year-old female with a past medical history of urinary retention with Lara catheter in place, dementia who presents to the emergency department with her [id number] whom she lives due to concern of Lara catheter being pulled out. Differential diagnosis includes but is not limited to accidental catheter removal, urethral trauma, etc. On exam the patient is in no acute distress, nontoxic appearing, vital signs appropriate, abdomen soft and nontender. She has no complaints at this time. Majority of history is provided by her [id number] due to her dementia. Patient accidentally pulled out Lara catheter today and needs a new Lara catheter placed as Urology would like this catheter in place until at least next month. We will proceed with Lara catheter placement in the ED. Urinary catheter was placed by nursing staff with return of clear/yellow draining urine. Patient and daughter requesting discharge home. Discussed signs and symptoms to return to the ED for. Recommended follow up with PCP and Urology. Patient's daughter verbalized understanding of all information, pat ient is stable for discharge home. Discharge Plan Departure Patient Disposition: Home Clinical Impression: Accidental removal of catheter, Encounter for Lara catheter replacement Activity Restrictions/Additional Instructions: Thank you for coming into the emergency department today. We apologize for wait times or delays. Nata's Lara catheter was replaced today. Please have her follow up with her primary care doctor and also have her follow up with her urologist as previously scheduled. Return to the emergency department immediately with any concerns that the catheter is not flowing, blood in the catheter, pain, catheter removal, fevers, any other concerns. Please follow up with your primary care doctor within the next 2-3 days for ER follow-up. (If you do not have a PCP you can call [phone]. ?to schedule an appointment with an [facility] Primary Care Provider) IF YOU DEVELOP ANY NEW OR WORSENING SYMPTOMS, RETURN TO THE ER! Please read the attached instructions, they highlight more specific treatments and interventions for you at home. Thank you for letting me participate in your care, Juliette Yost PA-C Prescriptions: No Action sertraline 100 mg tablet PO mirtazapine 15 mg tablet 15 mg PO ONCE PM Qty: 60 3RF famotidine 20 mg tablet 20 mg PO DAILY Qty: 90 3RF Referrals: Domonique Rubalcava MD [Primary Care Provider] - Stand Alone Forms: Patient Portal/API/Survey
[2024-07-28 18:14] VITALS: BP 118/61; PULSE 78; RESP 18; TEMP 36.7; O2SAT 98
== END 2024-07-28 18:15 | disposition home or self-care (01) ==
PROVIDERS: Emergency Provider Physician Assistant; Family Provider Family Medicine; PCP Family Medicine
DX: T83.021A Displacement of indwelling urethral catheter, initial encounter (principal); F03.90 Unspecified dementia, unspecified severity, without behavioral disturbance, psychotic disturbance, mood disturbance, and anxiety; Z85.3 Personal history of malignant neoplasm of breast; Z86.19 Personal history of other infectious and parasitic diseases; Z87.19 Personal history of other diseases of the digestive system
CPT/HCPCS: 99283

== ENCOUNTER → 2024-08-18 12:08 | Outpatient (CLI) | payer MEDICARE, BC, SELFPAY | PROVIDERS: Family Provider Family Medicine; PCP Family Medicine; Visit Provider Urology | DX: R39.9 Unspecified symptoms and signs involving the genitourinary system (principal) | CPT/HCPCS: 87077; 87086 ==

== ENCOUNTER → 2024-09-14 11:59 | Outpatient (CLI) | payer MEDICARE, BC, SELFPAY | PROVIDERS: Family Provider Family Medicine; PCP Family Medicine; Visit Provider Urology | DX: R39.9 Unspecified symptoms and signs involving the genitourinary system (principal); R33.9 Retention of urine, unspecified; Z68.1 Body mass index [BMI] 19.9 or less, adult | CPT/HCPCS: 51702; 87077; 87086; 87186 ==

== ENCOUNTER → 2024-09-15 16:31 | Outpatient (CLI) | payer MEDICARE, SELFPAY ==
--- NOTE | 2024-09-15 16:33 | DI.US.S_ITS ---
PROCEDURE: US RENAL COMPLETE INDICATIONS: hydronephrosis TECHNIQUE: Real-time scanning was performed of the kidneys and bladder, with image documentation. COMPARISON: [facility], CT, CT ABDOMEN PELVIS W CON, 06/14/2024, 13:31. FINDINGS: Kidneys: Kidneys are normal in size. Right kidney measures 10.6 cm long; left kidney measures 10.5 cm long. Right renal cortical thickness is 1.0 cm; left renal cortical thickness is 1.0 cm. Renal cortical echotexture is normal. No hydronephrosis or nephrolithiasis. No suspicious solid mass lesions. Bladder: There is a Lara catheter decompressing the urinary bladder. A trace amount of fluid is seen in the bladder. No visible bladder mass. Miscellaneous: No free pelvic fluid. IMPRESSION: Resolution of hydronephrosis compared to prior scan. Decompression of the urinary bladder with Lara catheter in place. Dictated by: Guerita Cuellar M.D. on 09/16/2024 at 14:38 Approved by: Guerita Cuellar M.D. on 09/16/2024 at 14:40
== END ==
PROVIDERS: Family Provider Family Medicine; PCP Family Medicine; Referring Provider Family Medicine; Visit Provider Urology
DX: N13.30 Unspecified hydronephrosis (principal)
CPT/HCPCS: 76770

== ENCOUNTER → 2024-09-22 11:59 | Outpatient (CLI) | payer MEDICARE, SELFPAY ==
--- NOTE | 2024-09-22 14:09 | ST.SWALLOW ---
Visit Care Team Role Provider Type Domonique Rubalcava MD Attending Provider Physician Family Provider Primary Care Provider Referring Provider Specialty: Family Practice CLINICAL SUPPORT MANAGER Address: [address] 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 Pt is accompanied by her daughter in law who is also her caregiver . Pt was diagnosed with Lewy Body dementia in April 2020 and was not able to answer most questions effectively, however daughter in law was able to provide case history. Pt was for recommended MBSS by ST to r/o aspiration and further guide POC. DIL reports she has noticed pt coughing more after eating and drinking. She can' t state if she coughs after specific consistencies, however notices after water and when she takes her pills. Pt consumes regular solids and thin liquids, however solids are cut into small pieces. DIL denies Pt with hx of PNA and stated that the goal is for pt to decrease the Pt's risk of aspiration/ choking and consume the foods she wants without risk of aspiration/choking. Subjective Observations Pt was seated in the fluoroscopy chair with directions and procedures described for her. She indicated she understood and agreed to proceed. Lateral View Textures Administered Trials Presented Thin Liquid via Spoon (IDDSI 0 ),Thin Liquid via Cup (IDDSI 0 ),Extremely Thick Liquid via Spoon (IDDSI 4),Regular (IDDSI 7) Barium Tablet Yes The IDDSI Framework Protocol: IDDSI.1 Oral Impairment Source: The Modified Barium Swallow Impairment Profile (MBSImP??) Lip Closure Escape from interlab.space/lat .junct.;no ext. beyond vermilion border Tongue Control During Bolus Hold Posterior escape of less than half of bolus Bolus Preparation/Mastication Disorganized chewing/mashing with solid pieces of bolus unchewed Bolus Transport/Lingual Motion Brisk tongue motion Oral Residue Complete oral clearance Initiation of Pharyngeal Swallow Bolus head at pyriforms Additional Oral Impairment Observations *Unable to complete formal oral motor exam d/t Pt with cognitive deficits and difficulties following commands. Informal assessment indicated reduced ROM as pt opened her mouth very little when speaking. Also suspect reduced strength and accuracy of oral structures as evidenced by reduction speech clarity. Pt with natural dentition in good condition. * Mastication observed to be vertical/munching pattern with reduced rotary chew pattern. This resulted in pieces of a cookie unchewed. Pieces of cookie seen to move over back of tongue to valeculla pre-swallow. Following swallow , cookie residue remained in valeculla. Cued swallow did not clear remaining cookie. Water wash did clear with pt coughing afterward. Pharyngeal Impairment Source: The Modified Barium Swallow Impairment Profile (MBSImP??) Soft Palate Elevation No bolus between soft palate & pharyngeal wall Laryngeal Elevation Min.sup.move. thyroid cart. w/ min.approx.arytenoids to epiglot.petiole Anterior Hyoid Excursion No anterior movement Epiglottic Movement No inversion Laryngeal Vestibular Closure Incomplete; narrow column air/ contrast in laryngeal vestibule Pharyngeal Stripping Wave Present - complete Pharyngoesophageal Segment Opening Complete distention & complete duration; no obstruction of flow Tongue Base Retraction Narrow column of contrast/air betwn tongue base & post. pharyngeal wall Pharyngeal Residue Collection of residue within/ on pharyngeal structures Location Valleculae Additional Pharyngeal Impairment *Reduced base of tongue Observations retraction *Reduced laryngeal elevation with no forward movement of the hyoid *Inconsistent epiglottal inversion. At best, the epiglottis was horizontal in pt's pharynx; at worst there was no epiglottic inversion observed. *Laryngeal penetration of thin liquid occurred x6 with pooling observed on anterior vocal folds (PAS 5: penetrates larynx, contacts folds, visible laryngeal reside) *Tracheal aspiration observed in AP view (PAS 8: Below folds, no response effort, tracheal residue) *Pt did not cough with penetration/aspiration; pt cleared throat x1 following water. A/P View Textures Administered Trials Presented Thin Liquid via Spoon (IDDSI 0 ) The IDDSI Framework Protocol: IDDSI.1 A/P View Observations Pharyngeal Contraction Complete Esophageal Clearance Upright Position Complete clearance; esophageal coating Vocal Fold Function Good Esophageal Function WFL Additional A-P Observations *Thin barium liquid a and calibrated barium tablet used for AP trials. *Barium coating observed in AP view in upper trachea indicating aspiration *No reflexive cough response noted Clinical Impressions Dysphagia Type Oral,Pharyngeal Findings Pt presented with oropharyngeal dysphagia characterized by reduced bas of tongue retraction, reduced laryngeal elevation, inconsistent epiglottic inversion with laryngeal penetration noted x6. Aspirated residue was noted below the vocal folds in AP view. No reflexive cough observed. When drinking the barium in single sip and consecutive swallow trials, the pt was observed to take in large quantities of the barium. Penetration/aspiration was noted in these trials. With single sips, NO penetration/ aspiration was observed. The use of a restricted flow cup (e.g., sippy cup) was recommended to reduce the pt's liquid intake and risk for aspiration. Relative to texture, a minced and moist texture for meats and soft/bite sized texture for other foods was recommended to the pt's daughter. Oral care pre-meal was also discussed to reduce risk of oral biome entering airway if aspiration occurs, reducing aspiration pneumonia risk Rehabilitation Potential Poor Patient Appropriate for Therapy Yes: Caregiver training; safe swallow strategies Recommendations Diet Liquids Order Thin (IDDSI 0) Diet Order Minced & Moist (IDDSI 5) Medication Recommendation As Tolerated,Whole in Carrier, Crushed in Carrier Additional Dietary Needs Controlled Sips,No Straws,1:1 Supervision Aspiration Precautions Recommended Precautions Upright at 90 Degrees,Small Bites/Sips Additional Precautions Sippy cup, remain upright after meals for at least 30 minutes; oral care Treatment Plan Therapy Recommendations Outpatient Speech Therapy Therapy Strategy Recommendations Sitting Upright (90 deg),Small Bites and Sips Placement Recommendation After Discharge Home,[facility] Project [facility] Care Facility
== END ==
PROVIDERS: Family Provider Family Medicine; PCP Family Medicine; Referring Provider Family Medicine; Visit Provider Family Medicine
DX: R13.10 Dysphagia, unspecified (principal)
CPT/HCPCS: 74230; 92611

== ENCOUNTER → 2024-10-06 12:13 | Outpatient (ROUT) | payer MEDICARE, SELFPAY ==
[2024-10-06 12:30] LABS: Appearance Urine UA SL CLOUDY; Bilirubin Urine UA NEGATIVE (NEGATIVE); Color Urine UA YELLOW; Glucose Urine UA NEGATIVE (Negative); Ketones Urine UA NEGATIVE (NEGATIVE); Leukocyte Esterase Urine UA 2+ (NEGATIVE); Nitrite Urine UA POSITIVE (Negative); Occult Blood Urine UA 3+ (Negative); Protein Urine UA 1+ (Negative); Specific Gravity Urine UA 1.025 (1.000-1.035); Urobilinogen Urine UA 0.2 E.U./dL (0.2); pH Urine UA 5.5 (4.5-8.0)
[2024-10-06 12:58] LABS: Bacteria Urine Many (>30); Calcium Oxalate Crystals Urine Moderate; Culture Indicated Urine Specimen Cultured; RBC Urine 0-1/HPF (0-5/HPF); Squamous Epithelial Cell Urine 1-5 /HPF (0-5/HPF); Urine Volume 10mL (spun); WBC Urine 30-100/HPF (0-5/HPF)
== END ==
LOC: LAB 12:14
PROVIDERS: Family Provider Family Medicine; PCP Family Medicine; Visit Provider Family Medicine
DX: R44.3 Hallucinations, unspecified (principal); R30.0 Dysuria
CPT/HCPCS: 81001; 87077; 87086

== ENCOUNTER → 2024-10-19 16:07 | Outpatient (CLI) | payer MEDICARE, SELFPAY | PROVIDERS: Family Provider Family Medicine; PCP Family Medicine; Visit Provider Urology | DX: R39.9 Unspecified symptoms and signs involving the genitourinary system (principal) | CPT/HCPCS: 87077; 87086 ==

== ENCOUNTER → 2024-10-20 16:31 | Outpatient (CLI) | payer MEDICARE, BC, SELFPAY | PROVIDERS: Family Provider Family Medicine; PCP Family Medicine; Visit Provider Urology | DX: R33.9 Retention of urine, unspecified (principal) | CPT/HCPCS: 51702; 87077; 87086; 87186 ==